=== PATIENT | female | born 1940 | race Caucasian/White ===

== ENCOUNTER 2020-04-03 19:34 | Inpatient (IN) | payer OTHER ==
--- OUTSIDE RECORDS SUMMARY | 2020-04-03 19:36 | XMS REPORT | Continuity of Care Document ---
:1940 Author Organization [facility] t Address [address] [place] [address] Care Team Providers Name Role Phone Jose Richard MD Attending Clinician Nikolas Henderson DO Attending Clinician Payers Payer Name Policy Type Policy Number Effective Date Expiration Date S ource Problems This patient has no known problems. Allergies, Adverse Reactions, Alerts Allergy Allergy Status Severity Reaction(s) Onset Inactive Treating Comm ents Source Name Type Date Date Clinician Statins- DA Active U 0 [facility] 03[facility]14 [facility] 00:00: [place] [address] [facility] Statins- DA Active U 0 [facility] 03[facility]10 [facility] 00:00: [place] [address] [facility] Medications This patient has no known medications. Procedures This patient has no known procedures. Encounters Start End Encounter Admission Attending Care Care Encounter Source Date/Time Date/Time Type Type Clinicians Facility Department ID 2019-11-29 2019-11-29 Telephone CRISTIAN Richard [id number] 00:00:00 00:00:00 [place] Jose Barnard [id number] [place] [id number] [place] [id number] [address] 2019-11-26 2019-11-26 Emergency CRISTIAN Henderson [id number] 19:24:02 21:21:00 Genia Barnard [id number] [place] [id number] [place] [id number] [id number] 2019-11-26 2019-11-26 Telemedici Hilary [facility] [id number] 11:16:48 11:36:48 ne Visit Curry Barnard [id number] [place] [id number] [facility] [phone] [facility] 2019-11-26 2019-11-26 Telephone Hilary [facility] [id number] 00:00:00 00:00:00 Curry Barnard [id number] [place] [id number] [facility] [phone] [facility] Results Test Description Test Time Test Comments Results Result Comments Source BASIC METABOLIC PANEL 2019-06-05 07:26:00 Test Item Value Reference Range Interpretation Comme nts SODIUM (test code = NA) 138 MMOL/L 137-145 N POTASSIUM (test code = K) 4.8 MMOL/L 3.5-5.1 N CHLORIDE (test code = CL) 100 MMOL/L 98-107 N CARBON DIOXIDE (test code = CO2) 35 MMOL/L 22-30 H ANION GAP (test code = GAP) 8 MMOL/L 14-24 L GLUCOSE (test code = GLU) 106 MG/DL 74-106 N BLOOD UREA NITROGEN (test code = 15 MG/DL 7-17 N BUN) GLOMERULAR FILTRATION RATE (test > 60 Reporting units: ml/min/1.73 code = GFR) m2 (Modified M DRD Formula)Referen ce Range: > or = 60 ml/min/1.7 3 m2 CREATININE (test code = CREAT) 0.70 MG/DL 0.52-1.04 N CALCIUM (test code = CA) 9.0 MG/DL 8.4-10.2 N [id number] 07:26:00 Test Item Value Reference Range Interpretation Comments MAGNESIUM (test code = MAG) 1.9 MG/DL 1.6-2.3 N PROTHROMBIN [id number] 07:26:00 Test Item Value Reference Range Interpretation Comments PROTHROMBIN TIME 10.0 SECONDS 9.6-11.6 N PATIENT (test code = PTP) INTERNATIONAL NORMAL 0.9 0.8-1.1 N The INR is to be RATIO (test code = used only for INR) monitoring oral anticoagulantth erap y. INDICATION I NR VALUE ---- ---- ---- -------1. Prophylaxis, de ep venous thrombos is, including hig h risk surgery. 2.0 - 3.0 2. Prophylaxis, de ep venous thrombos is, hip surgery, treatment for d eep venous thrombosis or pulmonary prevention of systemic emboli sm in patients wit h valvular heart disease, atrial fibrillation, tissue heart va lve, or acute myocar dial infarction. 2.0 - 3 .0 3. Mechanical prosthesis hear t valves, recurrent syste zoila embolism. 3.0 - 4.5 Comments to Environmental Field Team Member: NURSE WILL BRING TO LABPTT [id number] 07:26:00 Test Item Value Reference Range Interpretation Comments PTT ACTIVATED (test code = APTT) 25.9 SECONDS 22.0-33.0 N Comments to Environmental Field Team Member: NURSE WILL BRING TO LABBASIC METABOLIC [id number] 07:25:00 Test Item Value Reference Range Interpretation Comments SODIUM (test code = 138 MMOL/L 137-145 N NA) POTASSIUM (test code = 4.8 MMOL/L 3.5-5.1 N K) CHLORIDE (test code = 100 MMOL/L 98-107 N CL) CARBON DIOXIDE (test 35 MMOL/L 22-30 H code = CO2) ANION GAP (test code = 8 MMOL/L 14-24 L GAP) GLUCOSE (test code = 106 MG/DL 74-106 N GLU) BLOOD UREA NITROGEN 15 MG/DL 7-17 N (test code = BUN) GLOMERULAR FILTRATION > 60 Report ing units: RATE (test code = GFR) ml/mi n/1.73 m2 (Modified MDRD Formula)Referen ce Range: > or = 6 0 ml/min/1.73 m2 CREATININE (test code 0.70 MG/DL 0.52-1.04 N = CREAT) CALCIUM (test code = MG/DL 8.7-9.7 CA) [id number] 07:25:00 Test Item Value Reference Range Interpretation Comments MAGNESIUM (test code = MAG) MG/DL 1.6-2.3 BASIC METABOLIC [id number] 07:25:00 Test Item Value Reference Range Interpretation Comments SODIUM (test code = 138 MMOL/L 137-145 N NA) POTASSIUM (test code = 4.8 MMOL/L 3.5-5.1 N K) CHLORIDE (test code = 100 MMOL/L 98-107 N CL) CARBON DIOXIDE (test 35 MMOL/L 22-30 H code = CO2) ANION GAP (test code = 8 MMOL/L 14-24 L GAP) GLUCOSE (test code = 106 MG/DL 74-106 N GLU) BLOOD UREA NITROGEN 15 MG/DL 7-17 N (test code = BUN) GLOMERULAR FILTRATION > 60 Report ing units: RATE (test code = GFR) ml/mi n/1.73 m2 (Modified MDRD Formula)Referen ce Range: > or = 6 0 ml/min/1.73 m2 CREATININE (test code 0.70 MG/DL 0.52-1.04 N = CREAT) CALCIUM (test code = 9.0 MG/DL 8.4-10.2 N CA) [id number] 07:25:00 Test Item Value Reference Range Interpretation Comments MAGNESIUM (test code = MAG) MG/DL 1.6-2.3 BASIC METABOLIC [id number] 07:24:00 Test Item Value Reference Range Interpretation Comments SODIUM (test code = 138 MMOL/L 137-145 N NA) POTASSIUM (test code = 4.8 MMOL/L 3.5-5.1 N K) CHLORIDE (test code = 100 MMOL/L 98-107 N CL) CARBON DIOXIDE (test MMOL/L 22-30 code = CO2) GLUCOSE (test code = MG/DL 74-106 GLU) BLOOD UREA NITROGEN MG/DL 7-17 (test code = BUN) GLOMERULAR FILTRATION > 60 Report ing units: RATE (test code = GFR) ml/mi n/1.73 m2 (Modified MDRD Formula)Referen ce Range: > or = 6 0 ml/min/1.73 m2 CREATININE (test code 0.70 MG/DL 0.52-1.04 N = CREAT) CALCIUM (test code = MG/DL 8.7-9.7 CA) [id number] 07:24:00 Test Item Value Reference Range Interpretation Comments MAGNESIUM (test code = MAG) MG/DL 1.6-2.3 BASIC METABOLIC [id number] 07:22:00 Test Item Value Reference Range Interpretation Comments SODIUM (test code = NA) 138 MMOL/L 137-145 N POTASSIUM (test code = K) 4.8 MMOL/L 3.5-5.1 N CHLORIDE (test code = CL) 100 MMOL/L 98-107 N CARBON DIOXIDE (test code = CO2) MMOL/L 22-30 GLUCOSE (test code = GLU) MG/DL 74-106 BLOOD UREA NITROGEN (test code = MG/DL 7-17 BUN) GLOMERULAR FILTRATION RATE (test code = GFR) CREATININE (test code = CREAT) MG/DL 0.52-1.04 CALCIUM (test code = CA) MG/DL 8.7-9.7 [id number] 07:22:00 Test Item Value Reference Range Interpretation Comments MAGNESIUM (test code = MAG) MG/DL 1.6-2.3 BASIC METABOLIC [id number] 07:21:00 Test Item Value Reference Range Interpretation Comments SODIUM (test code = NA) MMOL/L 137-145 POTASSIUM (test code = K) MMOL/L 3.5-5.1 CHLORIDE (test code = CL) 100 MMOL/L 98-107 N CARBON DIOXIDE (test code = CO2) MMOL/L 22-30 GLUCOSE (test code = GLU) MG/DL 74-106 BLOOD UREA NITROGEN (test code = MG/DL 7-17 BUN) GLOMERULAR FILTRATION RATE (test code = GFR) CREATININE (test code = CREAT) MG/DL 0.52-1.04 CALCIUM (test code = CA) MG/DL 8.7-9.7 [id number] 07:21:00 Test Item Value Reference Range Interpretation Comments MAGNESIUM (test code = MAG) MG/DL 1.6-2.3 CBC W/AUTO [id number] 07:19:00 Test Item Value Reference Range Interpretation Comments WHITE BLOOD CELL (test code = 8.1 K/MM3 3.8-9.8 N WBC) RED BLOOD CELL (test code = 4.08 M/MM3 3.58-4.97 N RBC) HEMOGLOBIN (test code = HGB) 13.1 G/DL 11.2-14.9 N HEMATOCRIT (test code = HCT) 41.5 % 33.2-43.5 N MEAN CELL VOLUME (test code = 102 fL 80.7-99.1 H MCV) MEAN CELL HGB (test code = MCH) 32.1 pg 27.0-34.1 N MEAN CELL HGB CONCETRATION 31.6 % 32.2-35.7 L (test code = MCHC) RED CELL DISTRIBUTION WIDTH 13.2 % 12.1-15.2 N (test code = RDW) PLATELET COUNT (test code = 278 K/MM3 129-368 N PLT) MEAN PLATELET VOLUME (test code 8.7 fl 7.4-10.4 N = MPV) NEUTROPHIL % (test code = NT%) 66.4 % 43-75 N IMMATURE GRANULOCYTE % (test 0.2 % 0.0-2.0 N code = IG%) LYMPHOCYTE % (test code = LY%) 21.8 % 14-44 N MONOCYTE % (test code = MO%) 11.1 % 4-13 N EOSINOPHIL % (test code = EO%) 0.1 % 0-6 N BASOPHIL % (test code = BA%) 0.4 % 0-2 N NUCLEATED RBC % (test code = 0.0 % 0-1.0 N NRBC%) NEUTROPHIL # (test code = NT#) 5.37 K/mm3 2.0-7.6 N IMMATURE GRANULOCYTE # (test 0.02 x10 3/uL 0-0.03 N code = IG#) LYMPHOCYTE # (test code = LY#) 1.76 K/mm3 1.0-3.8 N MONOCYTE # (test code = MO#) 0.90 K/mm3 0.1-0.8 H EOSINOPHIL # (test code = EO#) 0.01 K/mm3 0.0-0.2 N BASOPHIL # (test code = BA#) 0.03 K/mm3 0.0-0.2 N NUCLEATED RBC # (test code = 0.00 K/mm3 0.0-0.1 N NRBC#) Comments to Environmental Field Team Member: NURSE WILL BRINGIs this a LINE draw? NBASIC METABOLIC [id number] 06:34:00 Test Item Value Reference Range Interpretation Comments SODIUM (test code = 138 MMOL/L 137-145 N NA) POTASSIUM (test code = 4.1 MMOL/L 3.5-5.1 N K) CHLORIDE (test code = 102 MMOL/L 98-107 N CL) CARBON DIOXIDE (test 32 MMOL/L 22-30 H code = CO2) GLUCOSE (test code = 107 MG/DL 74-106 H GLU) BLOOD UREA NITROGEN 14 MG/DL 7-17 N (test code = BUN) GLOMERULAR FILTRATION > 60 Report ing units: RATE (test code = GFR) ml/mi n/1.73 m2 (Modified MDRD Formula)Referen ce Range: > or = 6 0 ml/min/1.73 m2 CREATININE (test code 0.70 MG/DL 0.52-1.04 N = CREAT) CALCIUM (test code = 9.2 MG/DL 8.4-10.2 N CA) LIPID PROFILE (CORONARY RISK)2019-04-14 06:34:00 Test Item Value Reference Range Interpretation Comments TRIGLYCERIDES (test 87 MG/DL TRIGLYCE RIDES code = TRIG) REFERENCE RANGE:Normal: < 150 mg/dLBorderline High: 150-199 mg/dLHi gh: 200-499 mg/dLVe ry High: >=500 mg/ dL CHOLESTEROL (test code 146 MG/DL <200 = CHOL) HDL CHOLESTEROL (test 50 MG/DL 40-59 N code = HDL) LIPOPROTEIN LDL (test 85 MG/DL 0-99 N code = LDL) OPTIMAL........ .<100 mg/dLNEAR OPTIMAL/ABOVE OPTIMAL........ .100-12 9 mg/dL BORDERLINE HIGH.........13 0-159 mg/dL HIGH.........16 0-189 mg/dL VERY HIGH...... ...>/= 190 mg/dL [id number] 06:34:00 Test Item Value Reference Range Interpretation Comments MAGNESIUM (test code = MAG) 2.0 MG/DL 1.6-2.3 N PROTHROMBIN [id number] 06:26:00 Test Item Value Reference Range Interpretation Comments PROTHROMBIN TIME 10.4 SECONDS 9.6-11.6 N PATIENT (test code = PTP) INTERNATIONAL NORMAL 1.0 0.8-1.1 N The INR is to be RATIO (test code = used only for INR) monitoring oral anticoagulantth erap y. INDICATION I NR VALUE ---- ---- ---- -------1. Prophylaxis, de ep venous thrombos is, including hig h risk surgery. 2.0 - 3.0 2. Prophylaxis, de ep venous thrombos is, hip surgery, treatment for d eep venous thrombosis or pulmonary prevention of systemic emboli sm in patients wit h valvular heart disease, atrial fibrillation, tissue heart va lve, or acute myocar dial infarction. 2.0 - 3 .0 3. Mechanical prosthesis hear t valves, recurrent syste zoila embolism. 3.0 - 4.5 Comments to Environmental Field Team Member: WILL BRING TO THE LABPTT [id number] 06:26:00 Test Item Value Reference Range Interpretation Comments PTT ACTIVATED (test code = APTT) 28.2 SECONDS 22.0-33.0 N Comments to Environmental Field Team Member: WILL BRING TO THE LABBASIC METABOLIC [id number] 06:23:00 Test Item Value Reference Range Interpretation Comments SODIUM (test code = 138 MMOL/L 137-145 N NA) POTASSIUM (test code = 4.1 MMOL/L 3.5-5.1 N K) CHLORIDE (test code = 102 MMOL/L 98-107 N CL) CARBON DIOXIDE (test 32 MMOL/L 22-30 H code = CO2) GLUCOSE (test code = 107 MG/DL 74-106 H GLU) BLOOD UREA NITROGEN 14 MG/DL 7-17 N (test code = BUN) GLOMERULAR FILTRATION > 60 Report ing units: RATE (test code = GFR) ml/mi n/1.73 m2 (Modified MDRD Formula)Referen ce Range: > or = 6 0 ml/min/1.73 m2 CREATININE (test code 0.70 MG/DL 0.52-1.04 N = CREAT) CALCIUM (test code = 9.2 MG/DL 8.4-10.2 N CA) LIPID PROFILE (CORONARY RISK)2019-04-14 06:23:00 Test Item Value Reference Range Interpretation Comments TRIGLYCERIDES (test 87 MG/DL TRIGLYCE RIDES code = TRIG) REFERENCE RANGE:Normal: < 150 mg/dLBorderline High: 150-199 mg/dLHi gh: 200-499 mg/dLVe ry High: >=500 mg/ dL CHOLESTEROL (test code 146 MG/DL <200 = CHOL) HDL CHOLESTEROL (test 50 MG/DL 40-59 N code = HDL) LIPOPROTEIN LDL (test MG/DL 0-99 code = LDL) [id number] 06:23:00 Test Item Value Reference Range Interpretation Comments MAGNESIUM (test code = MAG) 2.0 MG/DL 1.6-2.3 N BASIC METABOLIC [id number] 06:22:00 Test Item Value Reference Range Interpretation Comments SODIUM (test code = 138 MMOL/L 137-145 N NA) POTASSIUM (test code = 4.1 MMOL/L 3.5-5.1 N K) CHLORIDE (test code = 102 MMOL/L 98-107 N CL) CARBON DIOXIDE (test 32 MMOL/L 22-30 H code = CO2) GLUCOSE (test code = MG/DL 74-106 GLU) BLOOD UREA NITROGEN 14 MG/DL 7-17 N (test code = BUN) GLOMERULAR FILTRATION > 60 Report ing units: RATE (test code = GFR) ml/mi n/1.73 m2 (Modified MDRD Formula)Referen ce Range: > or = 6 0 ml/min/1.73 m2 CREATININE (test code 0.70 MG/DL 0.52-1.04 N = CREAT) CALCIUM (test code = MG/DL 8.7-9.7 CA) LIPID PROFILE (CORONARY RISK)2019-04-14 06:22:00 Test Item Value Reference Range Interpretation Comments TRIGLYCERIDES (test code = TRIG) MG/DL CHOLESTEROL (test code = CHOL) 146 MG/DL <200 HDL CHOLESTEROL (test code = HDL) MG/DL 40-59 LIPOPROTEIN LDL (test code = LDL) MG/DL 0-99 [id number] 06:22:00 Test Item Value Reference Range Interpretation Comments MAGNESIUM (test code = MAG) MG/DL 1.6-2.3 BASIC METABOLIC [id number] 06:20:00 Test Item Value Reference Range Interpretation Comments SODIUM (test code = NA) 138 MMOL/L 137-145 N POTASSIUM (test code = K) 4.1 MMOL/L 3.5-5.1 N CHLORIDE (test code = CL) 102 MMOL/L 98-107 N CARBON DIOXIDE (test code = CO2) MMOL/L 22-30 GLUCOSE (test code = GLU) MG/DL 74-106 BLOOD UREA NITROGEN (test code = MG/DL 7-17 BUN) GLOMERULAR FILTRATION RATE (test code = GFR) CREATININE (test code = CREAT) MG/DL 0.52-1.04 CALCIUM (test code = CA) MG/DL 8.7-9.7 LIPID PROFILE (CORONARY RISK)2019-04-14 06:20:00 Test Item Value Reference Range Interpretation Comments TRIGLYCERIDES (test code = TRIG) MG/DL CHOLESTEROL (test code = CHOL) MG/DL <200 HDL CHOLESTEROL (test code = HDL) MG/DL 40-59 LIPOPROTEIN LDL (test code = LDL) MG/DL 0-99 [id number] 06:20:00 Test Item Value Reference Range Interpretation Comments MAGNESIUM (test code = MAG) MG/DL 1.6-2.3 BASIC METABOLIC [id number] 06:19:00 Test Item Value Reference Range Interpretation Comments SODIUM (test code = NA) 138 MMOL/L 137-145 N POTASSIUM (test code = K) MMOL/L 3.5-5.1 CHLORIDE (test code = CL) 102 MMOL/L 98-107 N CARBON DIOXIDE (test code = CO2) MMOL/L 22-30 GLUCOSE (test code = GLU) MG/DL 74-106 BLOOD UREA NITROGEN (test code = MG/DL 7-17 BUN) GLOMERULAR FILTRATION RATE (test code = GFR) CREATININE (test code = CREAT) MG/DL 0.52-1.04 CALCIUM (test code = CA) MG/DL 8.7-9.7 LIPID PROFILE (CORONARY RISK)2019-04-14 06:19:00 Test Item Value Reference Range Interpretation Comments TRIGLYCERIDES (test code = TRIG) MG/DL CHOLESTEROL (test code = CHOL) MG/DL <200 HDL CHOLESTEROL (test code = HDL) MG/DL 40-59 LIPOPROTEIN LDL (test code = LDL) MG/DL 0-99 [id number] 06:19:00 Test Item Value Reference Range Interpretation Comments MAGNESIUM (test code = MAG) MG/DL 1.6-2.3 CBC W/AUTO [id number] 06:13:00 Test Item Value Reference Range Interpretation Comments WHITE BLOOD CELL (test code = 9.6 K/MM3 3.8-9.8 N WBC) RED BLOOD CELL (test code = 4.16 M/MM3 3.58-4.97 N RBC) HEMOGLOBIN (test code = HGB) 13.7 G/DL 11.2-14.9 N HEMATOCRIT (test code = HCT) 41.5 % 33.2-43.5 N MEAN CELL VOLUME (test code = 100 fL 80.7-99.1 H MCV) MEAN CELL HGB (test code = MCH) 32.9 pg 27.0-34.1 N MEAN CELL HGB CONCETRATION 33.0 % 32.2-35.7 N (test code = MCHC) RED CELL DISTRIBUTION WIDTH 13.6 % 12.1-15.2 N (test code = RDW) PLATELET COUNT (test code = 253 K/MM3 129-368 N PLT) MEAN PLATELET VOLUME (test code 9.0 fl 7.4-10.4 N = MPV) NEUTROPHIL % (test code = NT%) 72.9 % 43-75 N IMMATURE GRANULOCYTE % (test 0.3 % 0.0-2.0 N code = IG%) LYMPHOCYTE % (test code = LY%) 16.7 % 14-44 N MONOCYTE % (test code = MO%) 9.9 % 4-13 N EOSINOPHIL % (test code = EO%) 0.0 % 0-6 N BASOPHIL % (test code = BA%) 0.2 % 0-2 N NUCLEATED RBC % (test code = 0.0 % 0-1.0 N NRBC%) NEUTROPHIL # (test code = NT#) 7.03 K/mm3 2.0-7.6 N IMMATURE GRANULOCYTE # (test 0.03 x10 3/uL 0-0.03 N code = IG#) LYMPHOCYTE # (test code = LY#) 1.61 K/mm3 1.0-3.8 N MONOCYTE # (test code = MO#) 0.95 K/mm3 0.1-0.8 H EOSINOPHIL # (test code = EO#) 0.00 K/mm3 0.0-0.2 N BASOPHIL # (test code = BA#) 0.02 K/mm3 0.0-0.2 N NUCLEATED RBC # (test code = 0.00 K/mm3 0.0-0.1 N NRBC#)
[2020-04-03] MEDS ORDERED: NA CHLORIDE 0.9% 1,000 ML ONE (20:55)
[2020-04-03] MEDS ORDERED: FOLIC ACID 5 MG/ML VIAL ONE (20:56)
--- NOTE | 2020-04-03 21:13 | RAD REPORT ---
EXAM DESCRIPTION: Julio C Single View04/03/2020 8:35 pm CLINICAL HISTORY: Cough COMPARISON: August 2019 FINDINGS: Medial right basilar opacity. This may represent pneumonia Left lung appears grossly clear. Upper lobes appear clear. Heart is normal size. Scoliosis involves spine
[2020-04-03 21:15] LABS: Absolute Lymphocytes (CBC) 1.1 K/uL (0.7-4.9); Basophils % 0.3 % (0-1.3); Hematocrit 40.1 % (36.0-45.0); Lymphocytes % 11.9 % (15.3-44.8); RBC Red Blood Cell Count 4.04 M/uL (3.86-4.86)
--- NOTE | 2020-04-03 21:15 | RAD REPORT ---
EXAM DESCRIPTION: CT - Head Brain Wo Cont - 04/03/2020 9:06 pm CLINICAL HISTORY: TIA COMPARISON: None TECHNIQUE: Computed axial tomography of the head was obtained. IV contrast was not requested. All CT scans are performed using dose optimization technique as appropriate and may include automated exposure control or mA/KV adjustment according to patient size. FINDINGS: An intracranial bleed is not seen . The ventricles are normal in caliber. No extra-axial fluid collection is noted. Mild low-density areas within periventricular, deep and subcortical white matter likely represent isc hemic changes secondary to small vessel disease. Fluid within the sinuses/ mastoids is not seen. IMPRESSION: No acute intracranial abnormality is seen. If patient's symptoms persist MRI of the bra in would be recommended.
[2020-04-03 21:16] LABS: Protime INR 1.13
[2020-04-03 21:27] LABS: ALT/SGPT 24 U/L (12-78); AST/SGOT 16 U/L (15-37); Albumin 3.3 g/dL (3.4-5.0); Alkaline Phosphatase 79 U/L (45-117); BUN Blood Urea Nitrogen 14 mg/dL (7-18); Bicarbonate 31 mmol/L (21-32); Bilirubin Direct 0.1 mg/dL (0-0.2); Bilirubin Total 0.5 mg/dL (0.2-1.0); C-Reactive Protein 6.14 mg/L (<3.00); Glucose Level 115 mg/dL (74-106); Magnesium 2.3 mg/dL (1.8-2.4); NT PRO-BNP 200 pg/mL (<450); Potassium 4.6 mmol/L (3.5-5.1); Protein, Total 6.9 g/dL (6.4-8.2); Sodium Level 139 mmol/L (136-145); Troponin (Emerg Dept Use Only) < 0.02 ng/mL (0.0-0.045)
[2020-04-03] MEDS ORDERED: ONDANSETRON 4 MG/2 ML VIAL ONE (21:34)
[2020-04-03] MEDS ORDERED: MORPHINE 4 MG/ML SYR ONE (22:20)
[2020-04-03] MEDS ORDERED: CLOPIDOGREL 75 MG TABLET ONE (22:59)
--- NOTE | 2020-04-03 23:01 | ER ---
Nurse's Notes [facility] Name: Chanda Helton Age: 79 yrs Sex: Female : 1940 Arrival Date: 04/03/2020 Time: 19:36 Bed 3 Private MD: Diagnosis: Dizziness and giddiness;Obesity, unspecified;Tobacco abuse counseling;Tobacco use;Pneumonia due to other specified bacteria-medial right basilar;Other chronic pain-low back pain Presentation: 04/03 19:31 Chief complaint: Patient states: that she has been having nausea and dizziness since 0900 this am. Pt concerned due to hx of CVA. Coronavirus screen: Client denies travel out of the [place] in the last 14 days. At this time, the client does not indicate any symptoms associated with coronavirus-19. Ebola Screen: Patient negative for fever greater than or equal to 101.5 degrees Fahrenheit, and additional compatible Ebola Virus Disease symptoms Patient denies exposure to infectious person. Patient denies travel to an Ebola-affected area in the 21 days before illness onset. Initial Sepsis Screen: Does the patient meet any 2 criteria? Yes Does the patient have a suspected source of infection? No. Patient's initial sepsis screen is negative. Risk Assessment: Do you want to hurt yourself or someone else? Patient reports no desire to harm self or others. Onset of symptoms was April 03, 2020 at 09:00. 19:31 Method Of Arrival: EMS: [facility] 19:31 Acuity: KERI 3 fc Historical: - Allergies: 20:30 No Known Allergies; - Home Meds: 20:30 aspirin 81 mg Oral TbEC 1 tab once daily [Active]; biotin 1,000 mcg oral chew daily [Active]; budesonide inhalation inhalation 2 times per day [Active]; Plavix 75 mg Oral tab 1 tab once daily [Active]; Cozaar 25 mg Oral tab 1 tab once daily [Active]; Zetia 10 mg Oral tab 1 tab once daily [Active]; Mobic 15 mg oral tab 1 tab once daily [Active]; k-dur [Active]; Zantac 150 mg Oral tab 1 tab 2 times per day [Active]; Vitamin B-12 50 mcg oral tab daily [Active]; Vitamin C 500 mg Oral cpER daily [Active]; Vitamin D3 400 unit oral cap daily [Active]; vitamin E Oral once daily [Active]; Hudson 7.5-325 mg Oral tab 1 tab twice a day [Active]; iron 325 mg (65 mg iron) oral cpER daily [Active]; tramadol 50 mg Oral tab 1 tab twice a day [Active]; - PMHx: 20:30 CVA; Hypertension; COPD; Myocardial infarction; Back pain; fc - Family history:: not pertinent. Screenin:34 Abuse screen: Denies threats or abuse. Nutritional screening: No deficits noted. jb4 Tuberculosis screening: No symptoms or risk factors identified. Fall Risk None identified. Assessment: 19:45 General: Appears in no apparent distress. comfortable, Behavior is calm, cooperative, jb4 appropriate for age. Pain: Denies pain. Neuro: Level of Consciousness is awake, alert, obeys commands, Oriented to person, place, time, situation. Cardiovascular: Patient's skin is warm and dry. Respiratory: Airway is patent Respiratory effort is even, unlabored, Respiratory pattern is regular, symmetrical. GI: No signs and/or symptoms were reported involving the gastrointestinal system. : No signs and/or symptoms were reported regarding the genitourinary system. EENT: No signs and/or symptoms were reported regarding the EENT system. Derm: Skin is intact, Skin is pink, warm \T\ dry. Musculoskeletal: Circulation, motion, and sensation intact. Range of motion: intact in all extremities. 19:50 Reassessment: Patient and/or family updated on plan of care and expected duration. Pain fc level reassessed. Patient is alert, oriented x 3, equal unlabored respirations, skin warm/dry/pink. Family in to see pt. 22:10 Reassessment: Patient appears in no apparent distress at this time. Patient is alert, rr5 oriented x 3, equal unlabored respirations, skin warm/dry/pink. complaint of back pain, ED provider aware with order made and carried out. 22:44 Reassessment: Patient appears in no apparent distress at this time. Patient and/or jb4 family updated on plan of care and expected duration. Pain level reassessed. Patient is alert, oriented x 3, equal unlabored respirations, skin warm/dry/pink. 23:45 Reassessment: Patient appears in no apparent distress at this time. Patient and/or jb4 family updated on plan of care and expected duration. Pain level reassessed. Patient is alert, oriented x 3, equal unlabored respirations, skin warm/dry/pink. 04/04 02:56 Reassessment: Patient appears in no apparent distress at this time. Patient and/or jb4 family updated on plan of care and expected duration. Pain level reassessed. Patient is alert, oriented x 3, equal unlabored respirations, skin warm/dry/pink. Pt repositioned to sitting position. Report called to LEONARDO Leggett. Vital Signs: 04/03 19:31 BP 131 / 77; Pulse 84; Resp 20; Temp 98.0(O); Pulse Ox 90% on R/A; Weight 99.79 kg (R); fc Height 5 ft. 5 in. (165.10 cm) (R); Pain 10/10; 22:10 BP 126 / 89; Pulse 80; Resp 19; Pulse Ox 99% ; rr5 23:30 BP 122 / 54; Pulse 94; Resp 18; Pulse Ox 93% on R/A; jb4 04/04 00:15 BP 121 / 58; Pulse 78; Resp 16; Pulse Ox 90% on R/A; jb4 01:00 BP 115 / 50; Pulse 80; Resp 20; Pulse Ox 90% on R/A; jb4 01:45 BP 122 / 64; Pulse 70; Resp 16; Pulse Ox 93% on R/A; jb4 02:30 BP 105 / 47; Pulse 68; Resp 16; Pulse Ox 95% on R/A; jb4 04/03 19:31 Body Mass Index 36.61 (99.79 kg, 165.10 cm) fc NIH Stroke Scale Scores: 04/03 22:49 NIHSS Score: 0 waldemar ED Course: 19:31 Arm band placed on Patient placed in an exam room, on a stretcher. fc 19:31 Patient has correct armband on for positive identification. Placed in gown. Bed in low fc position. Call light in reach. Side rails up X2. color television console monitor on. Pulse ox on. NIBP on. 19:31 Maintain EMS IV. Dressing intact. Good blood return noted. Site clean \T\ dry. Gauge \T\ fc site: 20 gauge to right a/c. 19:36 Patient arrived in ED. jb4 20:17 Travis Tan MD is Attending Physician. waldemar 20:18 Triage completed. fc 20:19 No provider procedures requiring assistance completed. fc 20:36 XRAY Chest (1 view) In Process Unspecified. EDMS 21:04 Dionte Torres, RN is Primary Nurse. jb4 21:07 CT Head Brain wo Cont In Process Unspecified. EDMS 22:56 Giovanni De La Cruz is Hospitalizing Provider. [facility] 04/04 02:54 Patient admitted, IV remains in place. jb4 Administered Medications: 04/03 21:00 Drug: foLIC Acid 1 mg Route: IVPB; Site: right antecubital; jb4 21:02 Follow up: Response: No adverse reaction; IV Status: Completed infusion jb4 21:17 Drug: NS 0.9% 1000 ml Route: IV; Rate: 1 bolus; Site: right antecubital; jb4 22:15 Follow up: Response: No adverse reaction; IV Status: Completed infusion jb4 21:28 Drug: Zofran (Ondansetron) 4 mg Route: IVP; Site: right antecubital; jb4 22:00 Follow up: Response: No adverse reaction jb4 22:15 Drug: morphine 4 mg {Note: rass 0.} Route: IVP; Site: right antecubital; rr5 22:43 Follow up: Response: No adverse reaction; Pain is decreased; RASS: Alert and Calm (0) 4 22:51 Drug: PlaVIX 75 mg Route: PO; jb4 23:25 Follow up: Response: No adverse reaction jb4 23:15 Drug: Zosyn 3.375 grams Route: IVPB; Infused Over: 60 mins; Site: right antecubital; jb4 04/04 00:15 Follow up: Response: No adverse reaction; IV Status: Completed infusion 4 04/03 23:21 Drug: Lovenox 40 mg Route: Sub-Q; Site: right lower abdomen; jb4 04/04 00:23 Follow up: Response: No adverse reaction [facility] Point of Care Testing: Blood Glucose: 04/03 19:44 Blood Glucose: 106 mg/dL; fc Ranges: Outcome: 22:59 Decision to Hospitalize by Provider. [facility] 04/04 02:54 Admitted to Med/surg accompanied by nurse, via stretcher, room 228, with chart, Report jb4 called to LEONARDO Leggett Condition: stable Discharge instructions given to patient, Instructed on the need for admit, Demonstrated understanding of instructions. 03:14 Patient left the ED. jb4 NIH Stroke Scale - NIH Stroke Score Date: 04/03/2020 Time: 22:49 Total Score = 0 1a. Level of Consciousness (LOC) - 0(Alert) 1b. Level of Consciousness (LOC) (Year \T\ Age) - 0(Both) 1c. LOC Commands (Open \T\ Closes Eyes/Ethologist) - 0(Both) 2. Best Gaze (Lateral Gaze Paresis) - 0(Normal) 3. Visual Field Loss - 0(No visual loss) 4. Facial Palsy - 0(Normal) 5a. Left Arm: Motor (10-second hold) - 0(No drift) 5b. Right Arm: Motor (10-second hold) - 0(No drift) 6a. Left Leg: Motor (5-second hold - always test supine) - 0(No drift) 6b. Right Leg: Motor (5-second hold - always test supine) - 0(No drift) 7. Limb Ataxia (finger/nose \T\ heel/kathleen - test with eyes open) - 0(Absent) 8. Sensory Loss (pinprick arms/legs/face) - 0(Normal) 9. Best Language: Aphasia (description/naming/reading) - 0(No aphasia) 10. Dysarthria (speech clarity - read or repeat words) - 0(Normal) 11. Extinction and Inattention (visual/tactile/auditory/spatial/personal) - 0(No abnormality) Initials: [facility] Signatures: Dispatcher [employer] EDTravis Carson MD MD cha Chretien, Felicia RN RN Dionte Torres RN RN jb4 Derrek Thomas RN RN rr5 Corrections: (The following items were deleted from the chart) 04/03 20:27 19:31 Immunization history: Last tetanus immunization: unknown, Pneumococcal waldemar vaccine status is unknown, Flu vaccine is not up to date. : 19:31 Social history: Smoking status: Patient reports the use of cigarette waldemar tobacco products, smokes one pack cigarettes per day. Patient/guardian denies using alcohol, street drugs,
--- NOTE | 2020-04-03 23:01 | EDPHYS ---
Physician Documentation [facility] Name: Chanda Helton Age: 79 yrs Sex: Female : 1940 Arrival Date: 04/03/2020 Time: 19:36 Bed 3 Private MD: BIA Physician Travis Tan HPI: 04/03 22:48 This 79 yrs old Female presents to ER via EMS with complaints of dizziness waldemar and nausea since 9 am. 22:49 The patient's problem is reported as difficulty walking, due to dizziness, hx of waldemar cerebellar strokes. Onset: The symptoms/episode began/occurred this morning. Duration: The episode is continuous. The symptoms are alleviated by laying, rest, The symptoms are aggravated by standing, walking, moving head. The patient presents with dizziness, feeling off balance. Onset: The symptoms/episode began/occurred this morning. Associated signs and symptoms: Pertinent positives: headache, numbness, palpitations. Historical: - Allergies: 20:30 No Known Allergies; fc - Home Meds: 20:30 aspirin 81 mg Oral TbEC 1 tab once daily [Active]; biotin 1,000 mcg oral chew daily fc [Active]; budesonide inhalation inhalation 2 times per day [Active]; Plavix 75 mg Oral tab 1 tab once daily [Active]; Cozaar 25 mg Oral tab 1 tab once daily [Active]; Zetia 10 mg Oral tab 1 tab once daily [Active]; Mobic 15 mg oral tab 1 tab once daily [Active]; k-dur [Active]; Zantac 150 mg Oral tab 1 tab 2 times per day [Active]; Vitamin B-12 50 mcg oral tab daily [Active]; Vitamin C 500 mg Oral cpER daily [Active]; Vitamin D3 400 unit oral cap daily [Active]; vitamin E Oral once daily [Active]; [place] 7.5-325 mg Oral tab 1 tab twice a day [Active]; iron 325 mg (65 mg iron) oral cpER daily [Active]; tramadol 50 mg Oral tab 1 tab twice a day [Active]; - PMHx: 20:30 CVA; Hypertension; COPD; Myocardial infarction; Back pain; fc - Family history:: not pertinent. ROS: 22:49 Constitutional: Negative for fever, chills, and weight loss, Eyes: Negative for injury, waldemar pain, redness, and discharge, ENT: Negative for injury, pain, and discharge, Neck: Negative for injury, pain, and swelling, Cardiovascular: Negative for chest pain, palpitations, and edema, Respiratory: Negative for shortness of breath, cough, wheezing, and pleuritic chest pain, Abdomen/GI: Negative for abdominal pain, nausea, vomiting, diarrhea, and constipation, Back: Negative for injury and pain, : Negative for injury, bleeding, discharge, and swelling, MS/Extremity: Negative for injury and deformity, Skin: Negative for injury, rash, and discoloration, Psych: Negative for depression, anxiety, suicide ideation, homicidal ideation, and hallucinations, Allergy/Immunology: Negative for hives, rash, and allergies, Endocrine: Negative for neck swelling, polydipsia, polyuria, polyphagia, and marked weight changes, Hematologic/Lymphatic: Negative for swollen nodes, abnormal bleeding, and unusual bruising. 22:49 Neuro: Positive for dizziness, weakness. Exam: 22:49 Radiologist reports: neg , no acute findings [facility] 22:49 Constitutional: This is a well developed, well nourished patient who is awake, alert, and in no acute distress. Head/Face: Normocephalic, atraumatic. Eyes: Pupils equal round and reactive to light, extra-ocular motions intact. Lids and lashes normal. Conjunctiva and sclera are non-icteric and not injected. Cornea within normal limits. Periorbital areas with no swelling, redness, or edema. ENT: Nares patent. No nasal discharge, no septal abnormalities noted. Tympanic membranes are normal and external auditory canals are clear. Oropharynx with no redness, swelling, or masses, exudates, or evidence of obstruction, uvula midline. Mucous membranes moist. Neck: Trachea midline, no thyromegaly or masses palpated, and no cervical lymphadenopathy. Supple, full range of motion without nuchal rigidity, or vertebral point tenderness. No Meningismus. Chest/axilla: Normal chest wall appearance and motion. Nontender with no deformity. No lesions are appreciated. Cardiovascular: Regular rate and rhythm with a normal S1 and S2. No gallops, murmurs, or rubs. Normal PMI, no JVD. No pulse deficits. Respiratory: Lungs have equal breath sounds bilaterally, clear to auscultation and percussion. No rales, rhonchi or wheezes noted. No increased work of breathing, no retractions or nasal flaring. Abdomen/GI: Soft, non-tender, with normal bowel sounds. No distension or tympany. No guarding or rebound. No evidence of tenderness throughout. Back: No spinal tenderness. No costovertebral tenderness. Full range of motion. Skin: Warm, dry with normal turgor. Normal color with no rashes, no lesions, and no evidence of cellulitis. MS/ Extremity: Pulses equal, no cyanosis. Neurovascular intact. Full, normal range of motion. Neuro: Awake and alert, GCS 15, oriented to person, place, time, and situation. Cranial nerves II-XII grossly intact. Motor strength 5/5 in all extremities. Sensory grossly intact. Cerebellar exam normal. Normal gait. Psych: Awake, alert, with orientation to person, place and time. Behavior, mood, and affect are within normal limits. Vital Signs: 19:31 BP 131 / 77; Pulse 84; Resp 20; Temp 98.0(O); Pulse Ox 90% on R/A; Weight 99.79 kg (R); Height 5 ft. 5 in. (165.10 cm) (R); Pain 10/10; 22:10 BP 126 / 89; Pulse 80; Resp 19; Pulse Ox 99% ; rr5 23:30 BP 122 / 54; Pulse 94; Resp 18; Pulse Ox 93% on R/A; jb4 04/04 00:15 BP 121 / 58; Pulse 78; Resp 16; Pulse Ox 90% on R/A; jb4 01:00 BP 115 / 50; Pulse 80; Resp 20; Pulse Ox 90% on R/A; jb4 01:45 BP 122 / 64; Pulse 70; Resp 16; Pulse Ox 93% on R/A; jb4 02:30 BP 105 / 47; Pulse 68; Resp 16; Pulse Ox 95% on R/A; jb4 04/03 19:31 Body Mass Index 36.61 (99.79 kg, 165.10 cm) NIH Stroke Scale Scores: 04/03 22:49 NIHSS Score: 0 waldemar MDM: 22:54 Differential diagnosis: CVA, metabolic disorder, drug effects. Differential diagnosis: waldemar cardiac arrhythmia, CVA, generalized weakness, hypovolemia, idiopathic dizziness, near-syncope, syncope, TIA, vertigo. Data reviewed: vital signs, nurses notes, lab test result(s), EKG, radiologic studies, CT scan, plain films. Data interpreted: cafeteria monitor: rate is 80 beats/min, Pulse oximetry: on room air is 99 %. Test interpretation: by ED physician or midlevel provider: ECG, plain radiologic studies. Counseling: I had a detailed discussion with the patient and/or guardian regarding: the historical points, exam findings, and any diagnostic results supporting the discharge/admit diagnosis, the presence of at least one elevated blood pressure reading (>120/80) during this emergency department visit, lab results, radiology results, the need for further work-up and treatment in the hospital, smoking cessation. 04/03 19:55 Order name: Glucose, Ancillary Testing; Complete Time: 22:47 [facility] 04/03 20:30 Order name: Basic Metabolic Panel; Complete Time: :47 [facility] 04/03 20:30 Order name: CBC with Diff; Complete Time: 22:47 [facility] 04/03 20:30 Order name: LFT's; Complete Time: :47 [facility] 04/03 20:30 Order name: Magnesium; Complete Time: 22:47 [facility] 04/03 20:30 Order name: NT PRO-BNP; Complete Time: 22:47 [facility] 04/03 20:30 Order name: PT-INR; Complete Time: :47 [facility] 04/03 20:30 Order name: Troponin (emerg Dept Use Only); Complete Time: 22:47 [facility] 04/03 20:30 Order name: Sed Rate; Complete Time: 22:47 [facility] 04/03 20:30 Order name: CRP; Complete Time: 22:47 [facility] 04/03 20:30 Order name: Urine Culture [facility] 04/03 22:48 Order name: Blood Culture Adult (2) [facility] 04/03 23:35 Order name: Basic Metabolic Panel [facility] 04/03 23:35 Order name: Basic Metabolic Panel [facility] 04/03 20:30 Order name: XRAY Chest (1 view); Complete Time: 22:47 [facility] 04/03 20:30 Order name: CT Head Brain wo Cont; Complete Time: 22:47 [facility] 04/03 23:35 Order name: CBC with Automated Diff [facility] 04/03 23:35 Order name: CBC with Automated Diff [facility] 04/03 23:35 Order name: Magnesium [facility] 04/03 23:35 Order name: Magnesium [facility] 04/03 23:36 Order name: Urinalysis [facility] 04/03 23:41 Order name: COVID-19 [facility] 04/04 00:16 Order name: CORONAVIRUS [facility] 04/04 01:24 Order name: SARS-COV-2 RT PCR [facility] 04/04 02:30 Order name: Urine Dipstick--Ancillary (enter results) [facility] 04/04 02:41 Order name: Urine Dipstick-Ancillary [facility] 04/03 20:30 Order name: EKG; Complete Time: 20:31 [facility] 04/03 20:30 Order name: Cardiac monitoring; Complete Time: 20:53 [facility] 04/03 20:30 Order name: EKG - Nurse/Tech; Complete Time: 20:54 [facility] 04/03 20:30 Order name: IV Saline Lock; Complete Time: 20:54 [facility] 04/03 20:30 Order name: Labs collected and sent; Complete Time: 20:54 [facility] 04/03 20:30 Order name: O2 Per Protocol; Complete Time: 20:54 [facility] 04/03 20:30 Order name: O2 Sat Monitoring; Complete Time: 20:54 [facility] 04/03 20:30 Order name: Urine Dipstick-Ancillary (obtain specimen); Complete Time: 02:15 [facility] 04/03 23:34 Order name: CONS Physician Consult [facility] 04/03 23:35 Order name: Heart Healthy [facility] Administered Medications: 21:00 Drug: foLIC Acid 1 mg Route: IVPB; Site: right antecubital; jb4 21:02 Follow up: Response: No adverse reaction; IV Status: Completed infusion jb4 21:17 Drug: NS 0.9% 1000 ml Route: IV; Rate: 1 bolus; Site: right antecubital; jb4 22:15 Follow up: Response: No adverse reaction; IV Status: Completed infusion jb4 21:28 Drug: Zofran (Ondansetron) 4 mg Route: IVP; Site: right antecubital; jb4 22:00 Follow up: Response: No adverse reaction jb4 22:15 Drug: morphine 4 mg {Note: rass 0.} Route: IVP; Site: right antecubital; rr5 22:43 Follow up: Response: No adverse reaction; Pain is decreased; RASS: Alert and Calm (0) jb4 22:51 Drug: PlaVIX 75 mg Route: PO; jb4 23:25 Follow up: Response: No adverse reaction jb4 23:15 Drug: Zosyn 3.375 grams Route: IVPB; Infused Over: 60 mins; Site: right antecubital; jb4 04/04 00:15 Follow up: Response: No adverse reaction; IV Status: Completed infusion jb4 04/03 23:21 Drug: Lovenox 40 mg Route: Sub-Q; Site: right lower abdomen; jb4 04/04 00:23 Follow up: Response: No adverse reaction jb Point of Care Testing: Blood Glucose: 04/03 19:44 Blood Glucose: 106 mg/dL; fc Ranges: Critical Glucose Levels:Adult <50 mg/dl or >400 mg/dl <40 mg/dl or >180 mg/dl Disposition: 04/03/20 22:59 Hospitalization ordered by Giovanni De La Cruz for Observation. Preliminary diagnosis are Dizziness and giddiness, Obesity, unspecified, Tobacco abuse counseling, Tobacco use, Pneumonia due to other specified bacteria - medial right basilar, Other chronic pain - low back pain. - Bed requested for Telemetry/MedSurg (observation). - Status is Observation. jb4 - Condition is Fair. - Problem is new. - Symptoms have improved. NIH Stroke Scale - NIH Stroke Score Date: 04/03/2020 Time: 22:49 Total Score = 0 1a. Level of Consciousness (LOC) - 0(Alert) 1b. Level of Consciousness (LOC) (Year \T\ Age) - 0(Both) 1c. LOC Commands (Open \T\ Closes Eyes/Clearing Tub Worker) - 0(Both) 2. Best Gaze (Lateral Gaze Paresis) - 0(Normal) 3. Visual Field Loss - 0(No visual loss) 4. Facial Palsy - 0(Normal) 5a. Left Arm: Motor (10-second hold) - 0(No drift) 5b. Right Arm: Motor (10-second hold) - 0(No drift) 6a. Left Leg: Motor (5-second hold - always test supine) - 0(No drift) 6b. Right Leg: Motor (5-second hold - always test supine) - 0(No drift) 7. Limb Ataxia (finger/nose \T\ heel/kathleen - test with eyes open) - 0(Absent) 8. Sensory Loss (pinprick arms/legs/face) - 0(Normal) 9. Best Language: Aphasia (description/naming/reading) - 0(No aphasia) 10. Dysarthria (speech clarity - read or repeat words) - 0(Normal) 11. Extinction and Inattention (visual/tactile/auditory/spatial/personal) - 0(No abnormality) Initials: [facility] Signatures: Dispatcher [employer] EDMO Travis Tan MD MD cha Chretien, Felicia RN RN Delia Serrano RN RN tl1 Dionte Torres RN RN jb4 Derrek Thomas RN RN rr5 Corrections: (The following items were deleted from the chart) 20:27 19:55 [facility], [facility]illary [facility]: 20[facility]17 Patient medically screened. [facility] 20: 19:31 Immunization history: Last tetanus immunization: unknown, Pneumococcal waldemar vaccine status is unknown, Flu vaccine is not up to date. 20: 19:31 Social history: Smoking status: Patient reports the use of cigarette [facility] tobacco products, smokes one pack cigarettes per day. Patient/guardian denies using alcohol, street drugs, 20: 20:22 Preceding the arrest, the patient collapsed, 30 min prior to ems, weak waldemar and droopy on one side, then collapsed before arrival of ems [facility] 20: 20:22 The arrest occurred at home. [facility] 20: 20:22 Pre-hospital course: The arrest was not witnessed by others. Bystanders waldemar at the scene did not perform CPR. EMS care prior to arrival: initiation of ACLS, peripheral IV, intubation was successfully performed, oxygen, backboard, [facility] 20: 20:22 Unable to obtain HPI due to patient is on ventilator, cpr. [facility] 20:27 20:22 It is unknown whether or not the patient has had similar symptoms in the [facility] past, [facility] 20:27 20:22 This 79 yrs old Female presents to ER via EMS with complaints waldemar of cpr in progress. [facility] 20: 20:24 Eyes: Pupils: are fixed and dilated, [facility] 20:27 20:24 Cardiovascular: Rate: actual rate is 0 bpm, Rhythm: pea, Pulses: not waldemar palpable, Heart sounds: none, Edema: 1+ edema to level of left ankle and right ankle, JVD: is noted bilaterally, to 2 cm, [facility] 20:27 20:24 Skin: Appearance: Color: pale, [facility] 20:24 Respiratory: Respiratory rate: zero, intubated [facility] 20:24 Unable to obtain ROS due to patient is on ventilator, [facility] 04/04 02:04/03 22:59 Hospitalization Ordered by Giovanni De La Cruz for Observation. tl1 Preliminary diagnosis is Dizziness and giddiness; Obesity, unspecified; Tobacco abuse counseling; Tobacco use; Pneumonia due to other specified bacteria - medial right basilar; Other chronic pain - low back pain. Bed requested for Telemetry/MedSurg (observation). Status is Observation. Condition is Fair. Problem is new. Symptoms have improved. [facility] 04/04 03:14 02:04/03/2020 22:59 Hospitalization Ordered by Giovanni De La Cruz for jb4 Observation. Preliminary diagnosis is Dizziness and giddiness; Obesity, unspecified; Tobacco abuse counseling; Tobacco use; Pneumonia due to other specified bacteria - medial right basilar; Other chronic pain - low back pain. Bed requested for Telemetry/MedSurg (observation). Status is Observation. Condition is Fair. Problem is new. Symptoms have improved. tl1
[2020-04-03] MEDS ORDERED: ENOXAPARIN 40 MG/0.4 ML SQ ONE (23:09)
[2020-04-03] MEDS ORDERED: PIPER/TAZO/NS 3.375gm 3.375 GM/100 ML BAG ONE (23:09)
--- NOTE | 2020-04-03 23:37 | P.HP ---
Certification for Inpatient Patient admitted to: Observation With expected LOS: <2 Midnights Patient will require the following post-hospital care: None Practitioner: I am a practitioner with admitting privileges, knowledge of patient current condition, hospital course, and medical plan of care. Services: Services provided to patient in accordance with Admission requirements found in Title 42 Section 412.3 of the Code of Federal Regulations <Asif Hutchinson - Last Filed: 04/04/20 01:35> Patient History Date of Service: 04/04/20 Reason for admission: Dizziness/giddiness/pneumonia History of Present Illness: 79-year-old female with past medical history of CVA, hypertension, COPD, myocardial infarction, chronic back pain, daily smoker 1 pack a day presents to the emergency room with complaints of intermittent dizziness/giddiness and nausea. States that it has been ongoing intermittently for the past week. Patient has a history of multiple cerebellar strokes. States that intermittently she will feel dizzy, feeling off balance. Not able to walk from the bed to the bathroom. States she gets nauseous. - Past Medical/Surgical History -: CVA -: Essential hypertension -: COPD -: Myocardial infarct -: None Psychosocial/ Personal History: Patient lives at home with daughter - Social History Smoking Status: Current every day smoker Alcohol use: No CD- Drugs: No Caffeine use: No Place of Residence: Home <JasperAsif - Last Filed: 04/04/20 01:35> Date of Service: 04/05/20 <han bajwa - Last Filed: 04/05/20 08:00> Review of Systems General: Other, As per HPI Eyes: Unremarkable ENT: Unremarkable Respiratory: Unremarkable Cardiovascular: Palpitations Gastrointestinal: Unremarkable Genitourinary: Unremarkable Musculoskeletal: As per HPI Integumentary: Unremarkable Neurological: Incoordination, Other (Dizziness/ giddiness), As per HPI Lymphatics: Unremarkable <JasperAsif - Last Filed: 04/04/20 01:35> Physical Examination - Vital Signs Temperature: 98.0 F Blood Pressure: 131/77 Pulse: 84 Respirations: 19 Pulse Ox (%): 90 (RA) - Physical Exam General: Alert, In no apparent distress, Oriented x3 HEENT: Atraumatic, Normocephalic, PERRLA, Mucous membr. moist/pink Neck: Supple, No Thyromegaly, Other (Trachea midline) Respiratory: Clear to auscultation bilaterally, Normal air movement Cardiovascular: No edema, Normal pulses, Regular rate/rhythm Capillary refill: <2 Seconds Gastrointestinal: Normal bowel sounds, Soft and benign, Non-distended Musculoskeletal: No clubbing, No swelling, No contractures, No erythema, No tenderness Integumentary: No rashes, No breakdown, No significant lesion, No tender ness/swelling Neurological: Normal speech, Normal strength at 5/5 x4 extr, Normal tone, Abnormal gait - Studies Laboratory Data (last 24 hrs) 04/03/20 20:58: PT 13.3 H, INR 1.13 04/03/20 20:58: WBC 9.3, Hgb 13.9, Hct 40.1, Plt Count 285 04/03/20 20:58: Sodium 139, Potassium 4.6, BUN 14, Creatinine 0.87, Glucose 115 H, Magnesium 2.3, Total Bilirubin 0.5, AST 16, ALT 24, Alkaline Phosphatase 79 <Asif Hutchinson - Last Filed: 04/04/20 01:35> Assessment and Plan - Plan Impression: Bacterial pneumonia complicated by a history of COPD: Intermittent dizziness, giddiness with nausea and residual headache complicated by a history of cerebellar CVAs: Nicotine dependence: Morbid obesity: Plan: Bacterial pneumonia complicated by a history of COPD: Chest x-ray with medial right basilar opacity suggestive of pneumonia. Will start on IV Rocephin and IV azithromycin. Continuous telemetry. Patient has a history of COPD as well. Monitor O2 sats. Intermittent dizziness, giddiness with nausea and residual headache complicated by a history of cerebellar CVAs: CT of the head shows no acute abnormal intracranial bleed. There are small vessel ischemic changes suggestive of small-vessel disease. Neurology consulted. Dr. Pereyra. Dizziness and giddiness is intermittent. Comes and goes and sometimes has a residual headache. Nicotine dependence: Patient has a history of COPD and smokes 1 pack of cigarettes per day. Counseled Morbid obesity: Counseled Discharge Plan: Home Plan to discharge in: 48 Hours - Advance Directives Does patient have a Living Will: No Does patient have a Durable POA for Healthcare: Yes - Code Status/Comfort Care Code Status Assessed: Yes Time Spent Managing Pts Care (In Minutes): 55 <Asif Hutchinson - Last Filed: 04/04/20 01:35> - Problems (Diagnosis) (1) Unsteady gait Current Visit: Yes Status: Acute (2) Dizziness Current Visit: Yes Status: Acute (3) History of cerebellar stroke Current Visit: Yes Status: Acute Physician Review: Patient Assessed, Agree with Above Assessment and Plan Physician Review Additional Text: Unstable gait and dizziness. History of cerebellar strokes. Rule out acute stroke. Obtain MRI of the brain. <han bajwa - Last Filed: 04/05/20 08:00>
[2020-04-04 02:41] LABS: Urine Blood TRACE (NEG); Urine Glucose NEGATIVE (NEG); Urine Protein NEGATIVE (NEG)
[2020-04-04 03:53] VITALS: BMI 38.1
[2020-04-04] MEDS ORDERED: TRAMADOL HCL 50 MG TAB PO ONE (04:12)
[2020-04-04] MEDS: HEPARIN 5000 UNIT/ML 1 ML VIAL SQ SCH ×3 (04:31→16:32)
[2020-04-04] MEDS: NA CHLORIDE 0.9% 1,000 ML IV SCH ×2 (04:31→13:16)
[2020-04-04 07:03] LABS: Absolute Lymphocytes (CBC) 1.4 K/uL (0.7-4.9); Basophils % 0.1 % (0-1.3); Hematocrit 38.4 % (36.0-45.0); Lymphocytes % 13.2 % (15.3-44.8); MPV 7.4 fL (7.6-11.3); RBC Red Blood Cell Count 3.84 M/uL (3.86-4.86)
[2020-04-04 07:20] LABS: Magnesium 2.1 mg/dL (1.8-2.4); Potassium 3.8 mmol/L (3.5-5.1)
--- NOTE | 2020-04-04 07:21 | EKG ---
Test Date: 2020-04-03 Test Time: 20:51:16 Rewards Consultant: WES MEASUREMENT RESULTS: Intervals: Rate: 78 WA: 158 QRSD: 80 QT: 388 QTc: 442 [place]: P: 64 WA: 158 QRS: 9 T: 72 INTERPRETIVE STATEMENTS: Normal sinus rhythm Low voltage QRS Borderline ECG No previous ECG available for comparison Electronically Signed On 04-04-20 07:19:58 CDT by Duane Mathew
[2020-04-04] MEDS: CEFTRIAXONE/SWI 1gm 1 GM/10 ML SYR IV SCH (08:16)
[2020-04-04] MEDS: AZITHROMYCIN IV 500 MG in NA CHLORIDE 0.9% 250 ML IVPB SCH (08:17)
[2020-04-04] MEDS ORDERED: CEFTRIAXONE 1 GM/NS 50 ML 1 GM/50 ML BAG IV SCH (09:00)
[2020-04-04] MEDS ORDERED: LORazepam 2 MG/ML VIAL IV ONE (14:45)
[2020-04-04] MEDS ORDERED: BUDESONIDE 0.5 MG/2 ML NEB IH PRN (15:02)
--- NOTE | 2020-04-04 15:02 | P.PN ---
Subjective Date of Service: 04/04/20 Chief Complaint: Dizziness/giddiness/pneumonia Patient complaining of dizziness and unsteady gait. She denies headache. She gave a history of and resume in her posterior circulation and previous history of cerebellar strokes. Physical Examination - Vital Signs Temperature: 97.5 F Blood Pressure: 131/59 Pulse: 82 Respirations: 20 Pulse Ox (%): 91 - Physical Exam General: Alert, In no apparent distress, Oriented x3 HEENT: Mucous membr. moist/pink Respiratory: Clear to auscultation bilaterally, Normal air movement Cardiovascular: No edema, Regular rate/rhythm, Normal S1 S2 Gastrointestinal: Normal bowel sounds, Soft and benign, No tenderness Musculoskeletal: No swelling, No erythema Integumentary: No rashes Neurological: Other (Nonfocal) - Studies Laboratory Data (last 24 hrs) 04/03/20 20:58: PT 13.3 H, INR 1.13 04/03/20 20:58: WBC 9.3, Hgb 13.9, Hct 40.1, Plt Count 285 04/03/20 20:58: Sodium 139, Potassium 4.6, BUN 14, Creatinine 0.87, Glucose 115 H, Magnesium 2.3, Total Bilirubin 0.5, AST 16, ALT 24, Alkaline Phosphatase 79 Assessment And Plan - Current Problems (Diagnosis) (1) Unsteady gait Current Visit: Yes Status: Acute (2) Dizziness Current Visit: Yes Status: Acute (3) History of cerebellar stroke Current Visit: Yes Status: Acute - Plan Case discussed with Dr. Pereyra. Will obtain MRA of head and neck and MRI of the brain. Resume Plavix. Check lipid profile. PT and OT. Neurology consult. Further management pending MRI results. Blood pressure control.
[2020-04-04] MEDS: ALBUTEROL 2.5 MG/3 ML NEB SOL IH PRN (17:17)
--- NOTE | 2020-04-04 17:21 | RAD REPORT ---
EXAM DESCRIPTION: MRI - Brain Wo Cont - 04/04/2020 5:01 pm CLINICAL HISTORY: Unsteady gait and dizziness COMPARISON: MRA Head Wo Cont dated 04/04/2020; Head Brain Wo Cont dated 04/03/2020 TECHNIQUE: Sagittal T1-weighted images were obtained along with axial PD, heavily T2-weighted and T2 -FLAIR images. Axial DWI and ADC mapping sequences were also obtained along with coronal heavily T2-w eighted images. Numerous sequences had to be repeated or modified due to extensive motion. FINDINGS: No intracranial hemorrhage. No mass effect, edema or shift of midline structures. The colin rity of motion limits the examination. However, there are multiple foci of abnormal diffusion signal in the cerebral hemispheres suspicious for nonhemorrhagic acute infarction. No significant atrophy ch anges in the cerebral hemispheres. Minimal white matter chronic ischemic changes are present. No acut e infarction of the cerebral hemisphere seen. Brainstem infarction is not suspected. There is no edema or shift of midline structures. No extra-axial fluid collections. Adamson-matter/whit e matter junction is preserved. Signal voids are seen as a normal finding in the major intracranial v essels. No globe or orbital content abnormality. Mastoid air cells and paranasal sinuses are clear. IMPRESSION: Severely motion degraded examination was performed and is suspicious for multiple nonhem orrhagic acute infarctions of each cerebellar hemisphere.
--- NOTE | 2020-04-04 17:24 | RAD REPORT ---
EXAM DESCRIPTION: MRI - MRA Head Wo Cont - 04/04/2020 5:01 pm CLINICAL HISTORY: Unsteady gait, dizziness COMPARISON: CT head same date TECHNIQUE: Axial and coronal 3D [id number] image acquisition was performed. 3D rotational images were generated with source and reconstruction images reviewed. Horizontal and vertical axis rotation al views generated using MIP protocol. FINDINGS: Exam has substantial motion degradation limitations. Basilar artery is tortuous without st enosis or stricture identifiable. Distal most vertebral arteries are too poorly visualized to allow a ssessment. Atherosclerotic changes are present in the middle cerebral artery distributions. This is w orst on the left. No internal carotid or anterior cerebral significant disease. IMPRESSION: Exam has substantial motion degradation limitation. There is evidence for significant at herosclerotic change in the left middle cerebral artery. The motion degraded MRI study showed findings suspicious for acute infarctions of the cerebellum. The patient's basilar artery is tortuous but does not show stenosis or significant atherosclerotic disea se.
--- NOTE | 2020-04-04 19:13 | CON ---
Reason For Consultation: Consultation called because of possible stroke. History Of Present Illness: Ms. Helton is a 79-year-old right-handed patient with hyperten rebeca, prior posterior circulation cerebellar strokes, long history of COPD, myocardial infarction, an d current 1 pack a day cigarette smoker, who comes to [facility] with intermittent dizziness , giddiness, nausea for at least a week's duration. The patient reports history of multiple cerebell ar strokes that affected her balance, coordination, and gait, but she felt she recovered to do fairly well, but since about a week, had difficulty walking back and forth in her bathroom and getting arou nd. She is very anxious and worried about the possibility of another stroke. At [facility] , head CT scan showed no acute ischemic or hemorrhagic change. Studies remarkable for chronic small- vessel ischemic disease, but could not look very closely at the posterior circulation. No mention of possible strokes in the posterior circulation. She does have a brain MRI stroke protocol and MRA of the vessels of the head and neck pending. She said in the past she had been put on aspirin and was switched over to Plavix by her GI doctor and she says she has been taking Plavix regularly, but again smoking at least a pack of cigarettes daily. In the emergency room, her blood work showed mild elev ation of neutrophils with normal white blood cell count and red blood cells were slightly decreased. Coagulation panel normal. Chemistries showed glucose up to about 130, calcium was normal initially and then subsequent after hydration 8.4. C-reactive protein slightly elevated at 6.14. Urinalysis s hows trace blood, is otherwise unremarkable. Her chest x-ray showed mid right basilar opacity, which may represent a pneumonia. Left lung was found to be clear. Electrocardiogram showed normal sinus rhythm with low-voltage QRS. Past Medical History: As indicated. Social History: Smokes a pack of cigarettes daily for around 60 years. Family History: Noncontributory. Allergies: NO KNOWN DRUG ALLERGIES. Home Medications: Plavix 75 mg daily, Cozaar 25 mg daily, Mobic 15 mg daily, Zantac 150 mg 2 tablets daily, vitamin B12 50 mcg daily, vitamin C 500 mg daily, vitamin D3 400 units daily, vitamin E 400 u nits daily, [place] 7.5/325 daily, iron 325 mg daily, tramadol 50 mg daily. Should be noted she has re ceived steroid injections in her back for chronic back pain and is seen by interior painter , Dr. Rondon, and her COPD is followed by mechanical service technician, Dr. Lindsey. Review of Systems: As indicated, she has coordination, balance, some nausea without vomiting. Otherwise, no recent feve rs or chills,, myalgias or arthralgias, no rash, no weight change, no abdominal pain, no genitourinar y issues, no psychiatric complaints. Physical Examination: Vital Signs: Blood pressure 131/59, pulse 82, respiratory rate 16 to 18, temperature 97.5, oxygen sa turation 91% to 95% on room air. Weight 229 pounds, height 5 feet 5 inches, BMI 38.1. General: Ms. Helton is resting, sitting in the bed actually, in no acute distress. HEENT: She is normocephalic, atraumatic. Sclerae anicteric. She has a mild upper airway congestion with a cough, otherwise good air movement. Abdomen: Soft. Extremities: No edema or cyanosis. In fact, she did say that her left leg was swollen earlier, but there is no evidence of edema in the legs at this point. Neurological: She is alert and oriented to situation, place, and person. Follows all commands appro priately. Her cranial nerves show no focal deficits on 2 through 12. Her motor examination shows no weakness. Despite reports of her stroke, she has good coordination of the arms and legs without obv ious dysdiadochokinesis or difficulty with [id number] or [id number]. She will be ambulated wit h the physical therapist, but has good stance and stride. Reflexes are symmetric and depressed in th e upper and lower extremities. Sensation is mild stocking-glove loss to light touch temperature in t he legs and arms. Assessment: Ms. Helton is a 79-year-old patient with multiple stroke risk factors including chronic smoking, chronic obstructive pulmonary disease. She has current pneumonia on chest x-ray. She has c lass 2 obesity with reported history of multiple posterior cerebellar circulation stroke including in the cerebellar region and chronic obstructive pulmonary disease along with chronic back pain, on mul tiple pain medications. Plan: 1.Plavix 75 mg daily, folic acid 1 mg daily, lipid panel, and likely she will benefit from high-dose statin and she was told of the importance of stopping cigarette smoking, hydrating with 8 glasses of water daily, and cutting back on sodas and caffeinated beverages, which she says she drinks lots of tea. Also to use a recumbent bike or floor peddler for exercise. May also get into a pool and do mo re aerobic activity. 2.She should be evaluated by the physical therapist for the need for acute inpatient rehabilitation. 3.Follow up on pending brain MRI with MRA of head and neck. VIANNEY/RICHY Voice ID: [id number] Report ID: [id number]
[2020-04-04] MEDS: TRAMADOL HCL 50 MG TAB PO SCH (21:18)
[2020-04-04] MEDS: ATORVASTATIN 40 MG TAB PO SCH (21:18)
[2020-04-05] MEDS: HEPARIN 5000 UNIT/ML 1 ML VIAL SQ SCH ×3 (01:12→16:29)
[2020-04-05] MEDS: TRAMADOL HCL 50 MG TAB PO SCH ×2 (04:56→21:07)
[2020-04-05] MEDS: NA CHLORIDE 0.9% 1,000 ML IV SCH ×2 (04:57→05:45)
[2020-04-05] MEDS ORDERED: HOME MED 1 EA UNK (Losartan Potassium [Losartan Potassium] 25 MG) PO SCH (09:00)
[2020-04-05] MEDS ORDERED: POTASSIUM CHLORIDE 10 MEQ PO SCH (09:00)
[2020-04-05] MEDS: CLOPIDOGREL 75 MG TABLET PO SCH (10:34)
[2020-04-05] MEDS: AZITHROMYCIN IV 500 MG in NA CHLORIDE 0.9% 250 ML IVPB SCH (10:34)
[2020-04-05] MEDS: ASPIRIN EC 81 MG TAB PO SCH (10:34)
[2020-04-05] MEDS: CEFTRIAXONE/SWI 1gm 1 GM/10 ML SYR IV SCH (10:34)
[2020-04-05] MEDS: EZETIMIBE 10 MG TAB PO SCH (10:34)
[2020-04-05] MEDS: POTASSIUM CL SA 10 MEQ TAB PO SCH (10:34)
[2020-04-05] MEDS: LOSARTAN POTASSIUM 50 MG TABLET PO SCH (10:35)
[2020-04-05] MEDS: FOLIC ACID 1 MG TABLET PO SCH (10:47)
[2020-04-05] MEDS: ALBUTEROL 2.5 MG/3 ML NEB SOL IH PRN (11:14)
--- NOTE | 2020-04-05 12:42 | P.PN ---
Subjective Date of Service: 04/05/20 Chief Complaint: Dizziness/giddiness/pneumonia Patient complaining of headache and neck pain today. She states the dizziness is better. She has not been up today. Physical Examination - Vital Signs Temperature: 96.7 F Blood Pressure: 129/64 Pulse: 90 Respirations: 18 Pulse Ox (%): 95 - Physical Exam General: In no apparent distress Neck: Supple, JVD not distended, No Thyromegaly Respiratory: Clear to auscultation bilaterally, Normal air movement Cardiovascular: No edema, Regular rate/rhythm, Normal S1 S2 Gastrointestinal: Normal bowel sounds, Soft and benign, No tenderness Musculoskeletal: No swelling, No erythema Integumentary: No rashes Neurological: Normal speech, Normal strength at 5/5 x4 extr Assessment And Plan - Current Problems (Diagnosis) (1) Unsteady gait Current Visit: Yes Status: Acute (2) Dizziness Current Visit: Yes Status: Acute (3) History of cerebellar stroke Current Visit: Yes Status: Acute (4) UTI (urinary tract infection) Current Visit: Yes Status: Acute - Plan MRA of head and neck and MRI of the brain result reviewed. MRA is suboptimal. MRI of the brain: Multiple acute infarcts pain both cerebella hemispheres. Continue Plavix. Added Aspirin and Lipitor. Lipid profile reviewed and unremarkable. Folic acid. PT and OT. Blood pressure control. Patient plan for disposition to inpatient rehab. Pain management for headache. Urine culture: Gram-negative rods. Continue IV Rocephin and follow urine culture for organism identification and sensitivity. Physician Review: Patient Assessed, Agree with Above Assessment and Plan Physician Review Additional Text: Unstable gait and dizziness. History of cerebellar strokes. Rule out acute stroke. Obtain MRI of the brain.
[2020-04-05] MEDS: HYDROCODONE/APAP 5/325 MG TAB PO PRN (14:44)
[2020-04-05] MEDS: ATORVASTATIN 40 MG TAB PO SCH (21:06)
[2020-04-06] MEDS: HEPARIN 5000 UNIT/ML 1 ML VIAL SQ SCH ×2 (00:39→09:15)
[2020-04-06] MEDS: NA CHLORIDE 0.9% 1,000 ML IV SCH ×3 (00:39→11:45)
[2020-04-06] MEDS: HYDROCODONE/APAP 5/325 MG TAB PO PRN ×2 (00:48→06:50)
[2020-04-06] MEDS ORDERED: POTASSIUM CL SA 10 MEQ TAB PO ONE (09:00)
[2020-04-06] MEDS: EZETIMIBE 10 MG TAB PO SCH (09:11)
[2020-04-06] MEDS: CEFTRIAXONE/SWI 1gm 1 GM/10 ML SYR IV SCH (09:11)
[2020-04-06] MEDS: ASPIRIN EC 81 MG TAB PO SCH (09:12)
[2020-04-06] MEDS: LOSARTAN POTASSIUM 50 MG TABLET PO SCH (09:13)
[2020-04-06] MEDS: FOLIC ACID 1 MG TABLET PO SCH (09:13)
[2020-04-06] MEDS: POTASSIUM CL SA 10 MEQ TAB PO SCH (09:13)
[2020-04-06] MEDS: TRAMADOL HCL 50 MG TAB PO SCH (09:14)
[2020-04-06] MEDS: CLOPIDOGREL 75 MG TABLET PO SCH (09:15)
[2020-04-06] MEDS: AZITHROMYCIN IV 500 MG in NA CHLORIDE 0.9% 250 ML IVPB SCH (09:18)
[2020-04-06] MEDS: ALBUTEROL 2.5 MG/3 ML NEB SOL IH PRN (09:34)
--- NOTE | 2020-04-06 11:14 | P.DS ---
Admission Date: 04/04/20 Discharge Date: 04/06/20 Disposition: DC HOME/HOME HEALTH CARE Discharge Condition: FAIR Reason for Admission: Dizziness/giddiness/pneumonia - Problems (1) Unsteady gait Current Visit: Yes Status: Acute (2) Dizziness Current Visit: Yes Status: Acute (3) History of cerebellar stroke Current Visit: Yes Status: Acute (4) UTI (urinary tract infection) Current Visit: Yes Status: Acute Brief History of Present Illness: 79-year-old woman with a history of COPD, chronic respiratory failure on home oxygen, prior history of multiple cerebella strokes presented to the emergency department with a complaint of dizziness and stated the pain, intermittent in nature. Patient also reported nausea. Head CT in the emergency department showed no acute disease. Also concern for another stroke event. Patient was hospitalized for further management. Hospital Course: Patient admitted to the medical floor. She was placed on aspirin in addition to her Plavix. She was also placed on lipitor. MRI of the brain demonstrated multiple acute cerebellar strokes in both hemispheres. MRA of the brain was a lso obtained was a sub optimal study but did not demonstrate any occlusions or aneurysm. Patient was seen by physical therapy. She ambulated with a walker. Patient was also evaluated by neurology-Dr. Pereyra. She was placed on folic acid. Patient was being considered for rehab placement but she declined and requested to go with home therapy. She had E. coli UTI which was treated with IV Rocephin. The E. coli is pansensitive. The patient is discharged with Omnicef to continue treatment for UTI. Vital Signs/Physical Exam: Temp Pulse Resp BP Pulse Ox 97.1 F 73 16 159/65 H 95 04/06/20 08:00 04/06/20 08:00 04/06/20 09:14 04/06/20 08:00 04/06/20 09:14 General: Alert, In no apparent distress, Oriented x3 Neck: Supple Respiratory: Clear to auscultation bilaterally, Normal air movement, Expiratory wheezes (Mild scattered wheezes.) Cardiovascular: No edema, Regular rate/rhythm, Normal S1 S2 Gastrointestinal: Normal bowel sounds, Soft and benign, No tenderness Musculoskeletal: No swelling Integumentary: No rashes Neurological: Normal strength at 5/5 x4 extr Laboratory Data at Discharge: WBC 10.7 K/uL (4.3-10.9) D 04/04/20 06:17 Hgb 13.0 g/dL (12.0-15.0) 04/04/20 06:17 Hct 38.4 % (36.0-45.0) 04/04/20 06:17 Plt Count 280 K/uL (152-406) 04/04/20 06:17 PT 13.3 SECONDS (9.5-12.5) H 04/03/20 20:58 INR 1.13 04/03/20 20:58 Sodium 142 mmol/L (136-145) 04/04/20 06:17 Potassium 3.8 mmol/L (3.5-5.1) 04/04/20 06:17 BUN 15 mg/dL (7-18) 04/04/20 06:17 Creatinine 0.99 mg/dL (0.55-1.3) 04/04/20 06:17 Glucose 130 mg/dL (74-106) H 04/04/20 06:17 Magnesium 2.1 mg/dL (1.8-2.4) 04/04/20 06:17 Total Bilirubin 0.5 mg/dL (0.2-1.0) 04/03/20 20:58 AST 16 U/L (15-37) 04/03/20 20:58 ALT 24 U/L (12-78) 04/03/20 20:58 Alkaline Phosphatase 79 U/L (45-117) 04/03/20 20:58 Triglycerides 108 mg/dL (<150) 04/05/20 04:38 Cholesterol 145 mg/dL (<200) 04/05/20 04:38 HDL Cholesterol 39 mg/dL (40-60) L 04/05/20 04:38 Cholesterol/HDL Ratio 3.72 04/05/20 04:38 Home Medications: Albuterol Sulfate [Albuterol Sulfate 0.083% Neb Soln] 2.5 mg IH PRN PRN 04/04/20 Budesonide [Pulmicort*] 2 puff IH PRN PRN 04/04/20 Clopidogrel Bisulfate [Plavix*] 75 mg PO DAILY 04/04/20 Ezetimibe [Zetia*] 10 mg PO DAILY 04/04/20 Famotidine 20 mg PO DAILY 04/04/20 Losartan Potassium 25 mg PO DAILY 04/04/20 Potassium Chloride [K-Dur] 10 meq PO DAILY 04/04/20 Tramadol HCl [Ultram] 50 mg PO BID 04/04/20 Aspirin [Aspirin EC 81 MG] 81 mg PO DAILY #30 tablet. 04/06/20 Atorvastatin Calcium [Lipitor] 40 mg PO BEDTIME #30 tab 04/06/20 Cefdinir [Omnicef] 300 mg PO BID #6 capsule 04/06/20 Folic Acid 1 mg PO DAILY #30 tablet 04/06/20 New Medications: Aspirin [Aspirin EC 81 MG] 81 mg PO DAILY #30 tablet. Folic Acid 1 mg PO DAILY #30 tablet Atorvastatin Calcium [Lipitor] 40 mg PO BEDTIME #30 tab Cefdinir [Omnicef] 300 mg PO BID #6 capsule Patient Discharge Instructions: Follow up with your PCP within 1 to 2 weeks. Diet: AHA Activity: Fall precautions Time spent managing pt's care (in minutes): 38
[2020-04-06 12:37] VITALS: BP 154/67; TEMP 97.2
[2020-04-06 14:46] VITALS: O2SAT 94
== END 2020-04-06 14:05 | disposition home or self-care (01) | DRG 64 ==
LOC: ER 19:34 → ERHOLD 23:31 → 2ND 04-04 03:07 → OBSVTOIN 04-04 17:55
PROVIDERS: ADMIT Internal Medicine; ATTEND Internal Medicine
DX: I63.9 Cerebral infarction, unspecified (principal); J15.9 Unspecified bacterial pneumonia; J44.0 Chronic obstructive pulmonary disease with (acute) lower respiratory infection; N39.0 Urinary tract infection, site not specified; J96.10 Chronic respiratory failure, unspecified whether with hypoxia or hypercapnia; I25.2 Old myocardial infarction; I10 Essential (primary) hypertension; G89.29 Other chronic pain; M54.9 Dorsalgia, unspecified; F17.210 Nicotine dependence, cigarettes, uncomplicated; R29.700 NIHSS score 0; R11.0 Nausea; R51 Headache; R42 Dizziness and giddiness; B96.20 Unspecified Escherichia coli [E. coli] as the cause of diseases classified elsewhere; E66.01 Morbid (severe) obesity due to excess calories; Z68.38 Body mass index [BMI] 38.0-38.9, adult; Z79.02 Long term (current) use of antithrombotics/antiplatelets; Z86.73 Personal history of transient ischemic attack (TIA), and cerebral infarction without residual deficits; Z79.899 Other long term (current) drug therapy; Z20.828 Contact with and (suspected) exposure to other viral communicable diseases
CPT/HCPCS: 36415; 70450; 70544; 70551; 71045; 80048; 80061; 80076; 81003; 82947; 83735; 83880; 84484; 85025; 85610; 85652; 86140; 87040; 87077; 87086; 87088; 87186; 93005; 94640; 96361; 96365; 96372; 96375; 97112; 97116; 97161; 99285; G0378; J0456; J0696; J1644; J1650; J2405; J2543; J7030; J7050; U0003